=== PATIENT | male | born 1955 | race Caucasian/White ===

== ENCOUNTER 2024-09-03 15:45 | Emergency (ER) | payer MEDICARE, SELFPAY ==
[2024-09-03 15:50] VITALS: BP 130/73; PULSE 71; TEMP 36.8; O2SAT 100; BMI 29.7
--- NOTE | 2024-09-03 15:52 | XR_ITS ---
[address] [address] Patient Name: MILAGROS MARTINEZ MRN: [id number] date: 1955 Sex: M Assigned Patient Location: ER Current Patient Location: ED.MAIN Accession/Order Number: [id number] Exam Date: 09/03/2024 16:09 Report Date: 09/03/2024 16:18 At the request of: SHARON OCONNELL MD Procedure: XR knee RT 3V XR knee RT 3V 09/03/2024 4:05 PM SIGNS AND SYMPTOMS: ^Twisted, pain PROTOCOL: Frontal, lateral, and oblique radiographs of the right knee COMPARISON: None FINDINGS: There is mild narrowing of the medial weightbearing joint space. There is spurring of the medial tibial spine. There is enthesophyte formation at the quadriceps insertion. There is a small joint effusion. There is no fracture. XR/XR knee RT 3V IMPRESSION: There is mild narrowing of the medial weightbearing joint space. No acute bony injury. There is a small joint effusion. Impression dictated by: Moreno Howard M.D. 09/03/2024 4:18 PM Dictation Location: [place] [address] Electronically authenticated by: [id number] Y Date: 09/03/2024 16:18
--- OUTSIDE RECORDS SUMMARY | 2024-09-03 15:55 | XMS_ITS | Encounter Summary ---
Author Organization [facility] Address [address] [place] [address] Care Team Providers Care [employer] Name Role Phone Holland Morris MD Unavailable Holland Morris MD Primary Care Provider [phone] Encounter Details Date Type Department Care Team (Late st Contact Info) Description 08/02/2023 Abstract [facility] [address] [facility] [address] [place] [address] Holland Morris MD [address] [place], [place] [id number] Social History Tobacco Use Types Packs/Day Years Used Date Smoking Tobacco: Never Smokeless Tobacco: Never PHQ-2 Answer Date Recorded Patient Health Questionnaire-2 Score 0 08/01/2023 Sex and Gender Information Value Date Recorded Sex Assigned at Not on file Legal Sex Male 8:21 PM EDT Gender Identity Not on file Sexual Orientation Not on file documented as of this encounter Plan of Treatment Upcoming Encounters Date Type Department Care Team (Late st Contact Info) Description 07/03/2025 10:10 AM EDT Office Visit [facility] [address] [place] [id number] Jael Vargas PA [address] [place] [address] documented as of this encounter Visit Diagnoses Not on filedocumented in this encounter Care Teams [employer] Relationship Specialty Start Date End Date Holland Morris MD [address] [facility] [address] [place] [address] PCP - Tatum CRUZ 04/11/21 Holland Morris MD [address] [facility] [address] [place] [address] PCP - General Family Medicine 08/17/22 documented as of this encounter
--- NOTE | 2024-09-03 16:03 | ED_ITS ---
HPI HPI - General Adult General Chief complaint: Extremity Injury, Lower Stated complaint: RIGHT LOWER EXTREMITY PAIN Time Seen by Provider: 09/03/24 15:49 History of Present Illness HPI narrative: 69-year-old male presents for pain in his right knee. He points to the lateral aspect and this occurred an hour ago when he was doing some work and he slipped on some mulch. He states straightening it out hurts the most. No pain in the hip or ankle and he has never had problems with that knee before. Related Data Previous Rx's ?Medication ?Instructions ?Recorded etodolac 300 mg capsule 300 mg PO Q8H PRN pain #20 c aps 09/03/24 Allergies Allergy/AdvReac Type Severity Reaction Status Date / Time No Known Drug Allergies Allergy Verified 09/03/24 15:50 Review of Systems ROS Narrative A ten point review of systems is negative except as noted above. PFSH PFSH Social History Little interest or pleasure in doing things: not at all Feeling down, depressed, or hopeless: not at all Exam Narrative Exam Narrative: Nurses note and vital signs reviewed and patient is not hypoxic. General: The patient appears well and in no apparent distress. Patient is resting comfortably on cart. Skin: Warm, dry, no pallor noted. There is no rash noted. Head: Normocephalic, atraumatic Eye: Normal conjunctiva, no drainage Ears, Nose, Mouth, and Throat: oral mucosa is moist. Nares patent. Cardiovascular: Regular Rate and Rhythm Respiratory: Patient is in no distress, no accessory muscle use Back: non-tender GI: Soft and nontender Musculoskeletal: The right knee is examined. There is no deformity or swelling. The knee joint is stable. He is able to flex his knee without difficulty but full extension causes some discomfort. Ankle and hip are nontender and have full range of motion. Neurological: A&O, normal speech Psychiatric: Cooperative Constitutional Vital Signs, click to edit/add: Last Vital Signs Temp 98.2 F 09/03/24 15:50 Pulse 71 09/03/24 15:50 Resp 16 09/03/24 15:50 BP 130/73 09/03/24 15:50 Pulse Ox 100 09/03/24 15:50 O2 Del Method Room Air 09/03/24 15:50 Course Vital Signs Vital signs: Vital Signs Temperature 98.2 F 09/03/24 15:50 Pulse Rate 71 09/03/24 15:50 Respiratory Rate 16 09/03/24 15:50 Blood Pressure 130/73 09/03/24 15:50 Pulse Oximetry 100 09/03/24 15:50 Oxygen Delivery Method Room Air 09/03/24 15:50 Temperature 98.2 F 09/03/24 15:50 Pulse Rate 71 09/03/24 15:50 Respiratory Rate 16 09/03/24 15:50 Blood Pressure 130/73 09/03/24 15:50 Pulse Oximetry 100 09/03/24 15:50 Oxygen Delivery Method Room Air 09/03/24 15:50 Medical Decision Making MDM Narrative Medical decision making narrative: X-ray findings are discussed with the patient. He was prescribed Lodine. Knee immobilizer applied, application checked by me and found to be appropriate, he is neurovascularly intact. He will see Dr. Moeller at the next available appointment which is September 10 at 10:30 in the morning. Treatment diagnosis and follow-up were discussed with the patient. Differential Diagnosis Differential Diagnosis: Knee sprain, fracture, internal derangement Imaging Data Knee x-ray: Radiologist's impression: ITS Impressions Knee X-Ray 09/03/24 15:52 IMPRESSION: There is mild narrowing of the medial weightbearing joint space. No acute bony injury. There is a small joint effusion. Impression dictated by: Moreno Howard M.D. 09/03/2024 4:18 PM Dictation [facility] Electronically authenticated by: [id number] Y Date: 09/03/2024 16:18 Discharge Plan Discharge Chief Complaint: Extremity Injury, Lower Clinical Impression: Right knee sprain Patient Disposition: Home, Self-Care Time of Disposition Decision: 16:35 Condition: Good Mode of Transportation: Private Vehicle Prescriptions / Home Meds: New etodolac 300 mg capsule 300 mg PO Q8H PRN (Reason: pain) Qty: 20 0RF Print Language: Amharic Instructions: Knee Sprain (ED) Referrals: ANGELIQUE MAN [Primary Care Provider, Family Practice] - 1 week Luis Alberto Moeller MD [Physician, Orthopedics] - 09/10/24 10:30 am
== END 2024-09-03 17:02 | disposition home or self-care (01) ==
PROVIDERS: Emergency Provider Emergency Medicine; PCP Family Medicine
DX: S83.91XA Sprain of unspecified site of right knee, initial encounter (principal); W18.49XA Other slipping, tripping and stumbling without falling, initial encounter
CPT/HCPCS: 73562; 99283